=== PATIENT | female | born 1990 | race Native Hawaiian/Other Pacific Islander ===

== ENCOUNTER 2019-01-10 18:39 | Emergency (ER) | payer MEDICAID, OTHER ==
[2019-01-10 19:25] VITALS: BMI 22.9
[2019-01-10 19:32] LABS: SQUAMOUS EPITHIAL 2 /hpf (0-5); URINE BACTERIA OCC (<OCC); URINE BILIRUBIN NEGATIVE (NEGATIVE); URINE BLOOD 3+ (NEGATIVE); URINE CLARITY Hazy (Clear); URINE COLOR Yellow (YELLOW); URINE GLUCOSE (UA) NORMAL (Normal); URINE LEUKOCYTE ESTERASE NEG Leu/uL (Negative); URINE PROTEIN NEGATIVE (NEGATIVE); URINE UROBILINOGEN NORMAL mg/dL (0.2-1.0)
[2019-01-10] MEDS ORDERED: Lactated Ringer's 1,000 ML IV ONE (19:50)
[2019-01-10 20:35] LABS: BASO # 0.1 K/uL (0.0-0.2); BASO % 0.5 % (0.0-2.0); EOS # 0.3 K/uL (0.0-0.7); EOS % 2.1 % (0.0-4.0); HEMOGLOBIN 12.5 g/dL (11.0-16.0); LYMPH # 2.6 K/uL (1.0-4.3); LYMPH % 16.1 % (20.0-40.0); MEAN CELL VOLUME 90.2 fL (81.0-99.0); MEAN CORPUSCULAR HEMOGLOBIN 30.1 pg (27.0-31.0); MEAN CORPUSCULAR HGB CONC 33.4 g/dL (33.0-37.0); MEAN PLATELET VOLUME 8.8 fL (7.2-11.7); MONO # 1.2 K/uL (0.0-0.8); MONO % 7.6 % (0.0-10.0); NEUT # 11.8 K/uL (1.8-7.0); NEUT % 73.7 % (50.0-75.0); RBC 4.15 Mil/uL (3.80-5.20); RED CELL DISTRIBUTION WIDTH 13.1 % (11.5-14.5)
[2019-01-10] MEDS ORDERED: Betamethasone Soluspan 30 mg/5mL Inj Susp IM ONE (20:46)
[2019-01-10 20:51] LABS: ALB/GLOB RATIO 1.2 (1.0-2.1); ALBUMIN 3.7 g/dL (3.5-5.0); ALT/SGPT < 6 U/L (9-52); AST/SGOT 21 U/L (14-36); BLOOD UREA NITROGEN 6 mg/dL (7-17); CALCIUM 9.6 mg/dl (8.6-10.4); GFR NON-AFRICAN AMERICAN > 60
[2019-01-10] MEDS ORDERED: ceFAZolin IV 1 gm in Dextrose 1 GM/50 ML BAG IVPB SCH (21:00)
[2019-01-10] MEDS ORDERED: ceFAZolin 1 gm FROZEN Premix 1 GM/50 ML ML IVPB ONE (21:10)
[2019-01-10] MEDS: Lactated Ringer's 1,000 ML IV SCH (22:00)
[2019-01-11] MEDS: ceFAZolin IV 1 gm in Dextrose 1 GM/50 ML BAG IVPB SCH ×2 (03:00→09:03)
[2019-01-11] MEDS: Lactated Ringer's 1,000 ML IV SCH (08:00)
[2019-01-11] MEDS ORDERED: Betamethasone Soluspan 30 mg/5mL Inj Susp IM ONE (08:53)
--- NOTE | 2019-01-11 10:33 | OBDCSUM ---
Datetime: 01/11/2019 10:28 Discharged to, Provider: Home Disch Instr Activity: Normal activity Disch Instr Diet: Regular Discharge Instructions, Provider: Routine instructions given Discharge Diagnosis, Provider: Labor Discharge Time: 01/11/2019 10:29 Disch Referrals: None Contraception discussed, Prov: Yes Discharge Comment, Provider: Pt admitted for contractions @ 33.2 weeks. - pt was given terb x 2. -betamethsone x 1 was given. - sve c/25 - currently tracing category 1 -no contractions. - pt to return 10:30pm for second dose of bethmethasone.
[2019-01-11 15:10] VITALS: BP 82/49; PULSE 89; RESP 15; TEMP 98.7; O2SAT 98
== END 2019-01-11 11:08 | disposition home or self-care (01) ==
LOC: C.EROB 18:39
DX: O60.03 Preterm labor without delivery, third trimester (principal); Z3A.33 33 weeks gestation of pregnancy
CPT/HCPCS: 80053; 81001; 85025; 96365; 96366; 96372; 96375; 99283; J0690; J0702; J3105; J7120